=== PATIENT | male | born 2005 | race Caucasian/White ===

== ENCOUNTER 2023-12-23 15:18 | Emergency (ER) | payer BC ==
[~2023-12-23] VITALS: Ht 180.3 cm; Wt 113.4 kg
[2023-12-23 15:27] VITALS: BP_SYST 128; PULSE 81; RESP 18; TEMP 99.1; O2SAT 98
[2023-12-23 16:15] LABS: HEMATOCRIT 40.6 % (36-54); HEMOGLOBIN 14.1 g/dL (14.0-18.0); MEAN CORPUSCULAR HEMOGLOBIN 30 pg (27-31); MEAN CORPUSCULAR HGB CONC 35 % (32-36); MEAN CORPUSCULAR VOLUME 87 fL (79.0-98.0); PLATELET COUNT (AUTO) 278 K/uL (130-430); RED BLOOD CELL COUNT(AUTO) 4.65 MIL/uL (4.2-6.2); RED CELL DISTRIBUTION WIDTH 14.9 % (9.0-15.0); WHITE BLOOD COUNT (AUTO) 7.7 K/uL (4.5-11.0)
[2023-12-23 16:34] LABS: ANION GAP 8 (5-15); CALCIUM 8.8 mg/dL (8.4-11.0); CARBON DIOXIDE 27 mmol/L (23-29); CHLORIDE 102 mmol/L (98-107); CREATININE 0.77 mg/dL (0.55-1.30); GFR AFRICAN AMERICAN 166 mL/min (>90); GFR NON AFRICAN-AMERICAN 137 mL/min (>90); GLUCOSE 84 mg/dL (74-106); POTASSIUM 3.8 mmol/L (3.5-5.1); SODIUM SERUM 137 mmol/L (136-145); UREA NITROGEN, BLOOD 10 mg/dL (8-21)
[2023-12-23] MEDS ORDERED: ONDANSETRON 4 MG ODT TAB PO ONE (17:45)
[2023-12-23] MEDS: NACL 0.9% 1,000 ML IV ONE (17:45)
[2023-12-23] MEDS: ONDANSETRON HCL 4 MG/2 ML VIAL IVP ONE (17:54)
[2023-12-23 18:03] LABS: ATYPICAL LYMPHOCYTES % 12 % (0-0); BAND % (MANUAL) 4 % (0-6); BASOPHILS % (MANUAL) 0 % (0-2); EOSINOPHILS % (MANUAL) 1 % (0-7); LYMPHOCYTES % (MANUAL) 45 % (20-46); MONOCYTES % (MANUAL) 5 % (0-11)
[2023-12-23 18:04] LABS: PLATELET ESTIMATE ADEQUATE (ADEQUATE)
[2023-12-23] MEDS ORDERED: ONDA-8 TL (18:48)
[2023-12-23 18:55] VITALS: BP_SYST 129; PULSE 82; RESP 18; TEMP 99; O2SAT 99
== END 2023-12-23 18:52 | disposition home or self-care (01) ==
LOC: SED 15:18
DX: T67.5XXA Heat exhaustion, unspecified, initial encounter (principal); Z79.899 Other long term (current) drug therapy; X30.XXXA Exposure to excessive natural heat, initial encounter; Y93.89 Activity, other specified; Y92.89 Other specified places as the place of occurrence of the external cause; Y99.8 Other external cause status
CPT/HCPCS: 99285; 96374; 71045; 96361; 85027; 80048; 83880; 85007; 85379; 84484; 36415; 93005; J2405; J7030